=== PATIENT | female | born 1970 | race Caucasian/White ===

== ENCOUNTER → 2017-04-08 10:24 | Outpatient (CLI) | payer OTHER ==
--- NOTE | 2017-04-22 09:15 | EC ---
PATIENT:EVER SANTOS DATE OF SERVICE: 04/08/17 SEX: F MEDICAL RECORD: [id number] DATE OF : [birth year] LOCATION:[facility] AGE OF PATIENT: 46 ADMISSION DATE: 04/08/17 REFERRING PHYSICIAN: INTERPRETING PHYSICIAN: MAI GROSSMAN MD ECHOCARDIOGRAM REPORT ECHO CHARGES 4 ECHO COMPLETE CLINICAL DIAGNOSIS: CP/PALPITATIONS ECHOCARDIOGRAPHIC MEASUREMENTS (adult normal given) AC root (d.<3.7cm) 2.3 cm LV Septum d (<1.2 cm> 1.0 cm Valve Excursion 1.7 cm LV Septum (systole) 1.7 cm Left Atria (s.<4.0cm> 3.4 cm LVPW d(<1.2cm) 0.9 cm RV (d.<2.3cm) 2.7 cm LVPW (sytole) 1.6 cm LV diastole(<5.6CM) 4.6 cm MV E-F(>70mm/sec) cm LV systole 2.8 cm LVOT Diameter 1.7 cm MV exc.(>10mm) cm Est.ejection fraction (50-75%) % Pericardial Effusion N DOPPLER: LVIT cm/sec A 41.0 cm/sec E 113 cm/sec LA cm/sec RVSP 33.0 mmHg LVOT 122 cm/sec AOP1/2T m/s Asc. Ao 136 cm/sec RVOT 54.0 cm/sec RA cm/sec PA 103 cm/sec AV Gradient Peak 7.4 mmHg AV Mean 3.9 mmHg AV Area 1.8 cm MV Gradient Peak 5.9 mmHg MV Mean 2.0 mmHg MV Area cm COMMENTS: Patcher Helper: 1 ELOISE ZARAGOZAOE Real Estate Development Manager: 2 Dr. Auguste TAPE# PACS DATE OF SERVICE: 04/08/2017 PROCEDURE: Transthoracic echocardiogram. FINDINGS: 1. The left ventricle is normal size, normal function with ejection fraction of 60%. 2. The left atrium is normal size, normal function. 3. The mitral valve is shown to have normal structure and no evidence of mitral regurgitation. ECHOCARDIOGRAM REPORT [id number] EVER SANTOS 4. The aortic valve is structurally normal. 5. The tricuspid valve has trace tricuspid regurgitation, normal right ventricular systolic pressures. 6. The pericardium is normal. 7. Right ventricle is normal size, normal function. 8. The right atrium is normal size, normal function. 9. Pulmonic valve not well visualized, but by Doppler is normal. CONCLUSIONS: The patient has overall normal echocardiogram. TRANSINT:[id number] Voice Confirmation ID: [id number] DOCUMENT ID: [id number] MAI GROSSMAN MD at 0915 CC: [id number] DICTATION DATE: 04/10/17 0808 MEDICAL EQUIPMENT REPAIR TECHNICIAN: 04/10/17 1034 DEP CLI 04/08/17 [id number] [place] [address]
== END | disposition home or self-care (01) ==
LOC: D.ECHO 10:00
DX: R07.9 Chest pain, unspecified (principal); R00.2 Palpitations

== ENCOUNTER → 2017-04-15 18:42 | Outpatient (CLI) | payer OTHER ==
[2017-04-15 19:41] LABS: CHOL - HDL RATIO 3.4 ratio (2.3-4.1)
== END | disposition home or self-care (01) ==
LOC: D.LABREF 18:42
PROVIDERS: Internal Medicine Cardiovascular Disease
DX: R07.9 Chest pain, unspecified (principal); R00.2 Palpitations